=== PATIENT | female | born 1965 | race Caucasian/White ===

== ENCOUNTER → 2019-05-29 | Outpatient (CLI) | payer BC ==
[2019-05-29 15:11] LABS: INR 0.9 (<1.2); Prothrombin Time 10.1 sec (9.0-12.0)
[2019-05-29 15:27] LABS: Basophils # (A) 0.1 k/uL (0-0.2); Basophils % (A) 1 %; Eosinophils # (A) 0.2 k/uL (0-0.7); Eosinophils % (A) 3 %; HCT 43.5 % (34.0-46.0); HGB 14.4 gm/dL (11.4-16.0); Lymphocytes # (A) 1.9 k/uL (1.0-4.8); Lymphocytes % (A) 27 %; MCH 30.1 pg (25.0-35.0); MCV 91.3 fL (80.0-100.0); Mean Platelet Volume 7.4; Monocytes # (A) 0.3 k/uL (0-1.0); Monocytes % (A) 5 %; Neutrophils # (A) 4.4 k/uL (1.3-7.7); Neutrophils % (A) 63 %; Platelet Count 293 k/uL (150-450); RBC 4.77 m/uL (3.80-5.40); RDW 12.9 % (11.5-15.5)
[2019-05-29 18:55] LABS: African American GFR (CKD) 96.2 (60.0-200.0); Albumin 4.3 g/dL (3.80-4.90); Albumin/Globulin Ratio 1.87 (1.60-3.17); Anion Gap 8.5 mmol/L (4.00-12.00); BUN/Creat Ratio 28.75 Ratio (12.00-20.00); Calcium 9.5 mg/dL (8.7-10.3); Carbon Dioxide 28.5 mmol/L (21.6-31.8); Globulin 2.3 g/dL (1.6-3.3); Potassium 4.8 mmol/L (3.5-5.5); Total Bilirubin 0.3 mg/dL (0.3-1.2); Total Protein 6.6 g/dL (6.2-8.2)
== END | disposition home or self-care (01) ==
LOC: LABWHC1 14:38
PROVIDERS: ATTEND Nurse Practitioner Family
DX: Z01.812 Encounter for preprocedural laboratory examination (principal)
CPT/HCPCS: 36415; 80053; 85025; 85610

== ENCOUNTER → 2019-05-29 | Outpatient (CLI) | payer BC ==
--- NOTE | 2019-05-31 14:31 | ECHOF ---
Referral Reason:R01.1 cardiac murmur MEASUREMENTS -------- HEIGHT: 170.2 cm WEIGHT: 94.3 kg BP: 150/100 IVSd: 1.5 cm (0.6 - 1.1) LVIDd: 3.9 cm (3.9 - 5.3) LVPWd: 1.4 cm (0.6 - 1.1) IVSs: 1.9 cm LVIDs: 2.5 cm LVPWs: 1.5 cm LA Diam: 4.2 cm (2.7 - 3.8) RVIDd: 3.0 cm (< 3.3) LAESV Index (A-L): 24.51 ml/m Ao Diam: 3.1 cm (2.0 - 3.7) AV Cusp: 1.1 cm (1.5 - 2.6) EPSS: 0.4 cm MV E Steve: 0.96 m/s MV DecT: 210 ms MV A Steve: 1.15 m/s MV E/A Ratio: 0.83 AV maxP.12 mmHg AV meanP.90 mmHg RAP: 5.00 mmHg RVSP: 31.33 mmHg MV EF SLOPE: 51.38 mm/s (70 - 150) MV EXCURSION: 14.27 mm (> 18.000) FINDINGS -------- Sinus rhythm. This was a technically good study. The left ventricular size is normal. There is mild concentric left ventricular hypertrophy. Overa ll left ventricular systolic function is normal with, an EF between 60 - 65 %. The right ventricle is normal in size. Normal LA size by volume 22+/-6 ml/m2. The right atrium is normal in size. Interatrial and interventricular septum intact. There is moderate aortic valve sclerosis. There is mild aortic regurgitation. There is moderate a ortic stenosis present. Peak/mean gradient across the Aortic Valve is 41.12mmHg / 21.90mmHg. Mild mitral annular calcification present. Mild mitral regurgitation is present. Mild tricuspid regurgitation present. Right ventricular systolic pressure is normal at < 35 mmHg. Trace/mild (physiologic) pulmonic regurgitation. The aortic root size is normal. Normal inferior vena cava with normal inspiratory collapse consistent with estimated right atrial pre ssure of 5 mmHg. There is no pericardial effusion. CONCLUSIONS -------- 1. Sinus rhythm. 2. This was a technically good study. 3. The left ventricular size is normal. 4. There is mild concentric left ventricular hypertrophy. 5. Overall left ventricular systolic function is normal with, an EF between 60 - 65 %. 6. The right ventricle is normal in size. 7. Normal LA size by volume 22+/-6 ml/m2. 8. The right atrium is normal in size. 9. Interatrial and interventricular septum intact. 10. There is moderate aortic valve sclerosis. 11. There is mild aortic regurgitation. 12. There is moderate aortic stenosis present. 13. Peak/mean gradient across the Aortic Valve is 41.12mmHg / 21.90mmHg. 14. Mild mitral annular calcification present. 15. Mild mitral regurgitation is present. 16. Mild tricuspid regurgitation present. 17. Right ventricular systolic pressure is normal at < 35 mmHg. 18. Trace/mild (physiologic) pulmonic regurgitation. 19. The aortic root size is normal. 20. Normal inferior vena cava with normal inspiratory collapse consistent with estimated right atrial pressure of 5 mmHg. 21. There is no pericardial effusion. VAULT MANAGER: Betsy Ambrose RDCS
== END | disposition home or self-care (01) ==
LOC: RADECHMAIN 13:25
PROVIDERS: ATTEND Family Medicine
DX: I08.3 Combined rheumatic disorders of mitral, aortic and tricuspid valves (principal)
CPT/HCPCS: 93306

== ENCOUNTER 2019-06-12 10:56 | Day surgery (SDC) | payer BC ==
[2019-06-09 15:51] VITALS: BMI 32.1
[~2019-06-12 10:56] MED LIST: DEXAMETHASONE SOD PHOSPHATE 10 MG/ML 1 ML VIAL IV ONE; HYDROmorphone 0.5 MG/0.5 ML SYRINGE IVP PRN; LIDOCAINE 1% 20 ML VIAL (10MG/ML) FOR IV START INTRADERMA PRN; MIDAZOLAM 2 MG/2 ML VIAL IV PRN; ONDANSETRON 4 MG/2 ML VIAL IVP ONE; Pre Op ABX Message 1 EACH MISC MISCELLANE ONE; SCOPOLAMINE 1.5MG/72HR PATCH TRANSDERM ONE
[2019-06-12 11:21] VITALS: RESP 16; TEMP 98.4
[2019-06-12] MEDS: LACTATED RINGERS 1,000 ML IV SCH ×2 (11:23→15:11)
[2019-06-12] MEDS ORDERED: fentaNYL (PF) 50 MCG/ML 2 ML AMP IV ONE (12:01)
--- NOTE | 2019-06-12 12:13 | P.ANPRN ---
Procedure Note - Anesthesia - Nerve Block Performed Right Interscalene Single Time Out Performed: Yes Date of Procedure: 06/12/19 Procedure Start Time: 12:01 Procedure Stop Time: 12:09 Location of Patient Procedure: PreOp Indication: Acute Post-Operative Pain, Requested by Surgeon (Dr Black) Specifically requested for management of pain by : Kaushal Black Sedation Type: Sedate with meaningful contact maintained Preparation: Sterile Prep Position: Supine Catheter: None Needle Types: Facet Needle Gauge: 20 Ultrasound used to visualize needle placement: Yes Ultrasound used to observe medication spread: Yes Injectate: 0.5% Ropivacaine (see comment for volume) (30 mls) Blood Aspirated: No Pain Paresthesia on Injection Noted: No Resistance on Injection: Normal Image Stored and Saved: Yes Events: Uneventful and Well Tolerated
[2019-06-12] MEDS ORDERED: MIDAZOLAM 2 MG/2 ML VIAL ONE (12:20)
[2019-06-12] MEDS ORDERED: PHENYLEPHRINE-0.9% NACL SYG 1 MG/10 ML SYRINGE ONE (12:20)
[2019-06-12] MEDS ORDERED: ceFAZolin 1,000 MG VIAL ONE (12:20)
[2019-06-12] MEDS ORDERED: ROPIVACAINE 5 MG/ML 30 ML VIAL ONE (12:20)
[2019-06-12] MEDS ORDERED: LIDOCAINE 1% INJ 10MG/ML (20 ML MDV) ONE (12:20)
[2019-06-12] MEDS ORDERED: PROPOFOL 10 MG/ML 20 ML VIAL IV ONE (12:20)
[2019-06-12] MEDS ORDERED: fentaNYL (PF) 50 MCG/ML 2 ML AMP ONE (12:20)
[2019-06-12] MEDS ORDERED: SUCCINYLCHOLINE CHLORIDE 100 MG/5 ML SYR IV ONE (12:20)
[2019-06-12] MEDS ORDERED: SODIUM CHLORIDE 0.9% 50 ML with ceFAZolin 2,000 MG IV ONE ×2 (12:23)
[2019-06-12] MEDS ORDERED: EPINEPHrine 4 MG in SODIUM CHLORIDE 0.9% IRRIGATIO 3,000 ML IRRIGATION ONE ×8 (12:49)
--- NOTE | 2019-06-12 13:45 | P.OP ---
Date of Procedure: 06/12/19 Procedure(s) Performed: PREOPERATIVE DIAGNOSES: 1. Right shoulder rotator cuff tendinopathy. 2. Chronic impingement syndrome. 3. Acromioclavicular osteoarthritis. 4. Superior labral degenerative tear. POSTOPERATIVE DIAGNOSES: 1. Right shoulder rotator cuff tear (high-grade partial supraspinatus, 1.5 cm). 2. Chronic impingement syndrome. 3. Acromioclavicular osteoarthritis. 4. Labral degenerative tear. 5. Mild adhesive capsulitis PROCEDURES PERFORMED: 1. Right shoulder arthroscopy with rotator cuff repair 2. Arthroscopic partial distal clavicle excision 3. Arthroscopic lysis of adhesions and manipulation under anesthesia 4. Arthroscopic subacromial decompression 5. Arthroscopic debridement superior labral tear ANESTHESIA: General. ESTIMATED BLOOD LOSS: Less than 25 mL TOURNIQUET: None ENVIRONMENTAL JOURNALIST: Gayla Castanon PA-C (assistance with: Positioning, retraction, c amera operation, repair, closure, dressing) COMPLICATIONS: None. DISPOSITION: To postanesthesia care unit INDICATIONS: Hanna is a 54 year old female with a history of rotator cuff difficulties. MRI was suspicious for a tear, and the patient wishes to have it repaired. I have examined the patient in the office and proposed rotator cuff repair via an arthroscopic or mini-open approach, as well as other procedures to optimize the shoulder and outcome, such as decompression of spurs and debridement of loose or degenerated tissue. I have explained the risks of this surgery as being inclusive of, but not limited to: bleeding, infection, scarring, discomfort, blood vessel and/or nerve damage, need for further surgery, stiffness, persistence or worsening of problems, , and other ris ks. The consent form has been completed and signed. PROCEDURE: Appropriate consent was obtained from the patient. The patient was taken to the operating room and placed in the supine position. General anesthesia was initiated and after confirmation of adequate anesthesia, the patients right shoulder was examined. Initial range of motion showed flexion to 150 abduction to 150, external rotation to 60 and internal rotation to 30. Using Codman's paradox maneuver, the right shoulder was gently stretched and final range of motion after the stretch was for flexion to 180 , abduction to 180, external rotation to 75, and internal rotation to 75 with the arm at 90 abduction. The shoulder was stable. Next, the patient was rotated into the lateral decubitus position and stabilized to the table with a braden bag and padded straps. Care was taken to make sure that all pressure points were adequately padded. Bear-hugger was used along with bilateral leg sequential compression devices. Prepping and draping was completed in the usual aseptic fashion using ChloraPrep. The patient received intravenous antibiotics prior to incision. The shoulder was suspended from traction with 10 lbs. of weight in a position of 45 degrees abduction. Landmarks were outlined with a skin marking pen. A spinal needle was inserted into the glenohumeral joint and fluid was administered to distend the joint. A posterior portal was created using an 11 blade and the arthroscopic canula, over a dull trocar, was carefully inserted into the joint. Arthroscopy then commenced. An anterior portal was inserted in the rotator interval area using inside-out technique. Biceps tendon was normal. Infraspinatus, subscapularis, and teres minor attachments were normal. Hyaline cartilage of the glenoid and humeral head showed degenerative changes typical for age. Supraspinatus attachment showed an area of suspicion of high grade partial tearing with evidence of minor damage on the articular side but suspicion of more serious damage on the bursal side. No loose bodies were noted in the joint. Superior labrum showed some degenerative tearing but was well-attached. Negative peel back sign. There was also evidence of minor degenerative labral tearing in the inferior area. Loose fibers of labrum in this area were debrided away back to stable labrum. Synovitis was noted superior to the superior labrum and within the rotator interval. This was debrided and removed where the capsule appeared inflamed, using an arthroscopic shaver. Attention was then directed to the subacromial space. The camera and instruments were redirected into the subacromial space and bursoscopy was performed. The patients bursa was inflamed and thickened, indicating chronic bursitis. There also appear to be significant degenerative adhesions present within the lateral gutter anterior gutter and posterior gutter. These adhesions were lysed using a shaver and radiofrequency and attention was paid to met iculous hemostasis with the ArthroCare device. A lateral portal was created using outside-in technique. The supraspinatus tendon was examined particularly closely. There was an approximately 1.5 cm high-grade partial tear. This tear involved at least 75% of the tendon thickness. The loose fibers of the tear were debrided back to stable tissue and the defect in the tendon was repaired arthroscopically after careful preparation of the supraspinatus footprint with shantel and rasp to create a good bleeding surface of bone, see below. The undersurface of the acromion had frictional changes consistent with impingement syndrome. The underside of the acromion anteriorly was cleared of soft tissue using an arthroscopic radiofrequency ablator. Care was taken while using the ablator not to exceed 40 degrees Centigrade within the bursa. The frictional changes of the rotator cuff matched exactly the location of the rotator cuff tear in the critical zone. A formal subacromial decompression was performed using a shantel. Approximately 5.5 mm of material was removed from the anterior-inferior corner of the acromion. This resection was beveled upwards laterally, and carried to the AC joint. The AC joint appeared arthritic with inferior spurring. This spurring was removed with a shantel, co-planing the resection with the acromial resection and removing approximately 5 to 6 mm of inferior distal clavicle maximally. The rotator cuff tear was then repaired as follows. Preparation of the supraspinatus footprint was performed using hand rasps , shantel, and shaver. This created a bleeding surface without significant decortication. A reverse mattress suture using Fiber Tape from [employer] was deployed into the torn supraspinatus edge. A 4.75 mm Swivelock anchor was then deployed at the greater tuberosity and the suture tension was adjusted so that there was complete reduction and coverage of the footprint. Loose cuff material adjacent to the fiber tape was tacked down using the accessory stitch within the anchor. Suture tails were then cut. It was noted that there was complete closure of the cuff defect. The repair was stable. Subsequently, 4-0 Monocryl was used to close the portal holes. Steri-strips were applied as well as sterile dressing. The shoulder was then placed into a sling and the patient was transferred to recovery room in stable condition. Sponge and needle counts were correct.
[2019-06-12 15:41] VITALS: BP 113/71; PULSE 80
== END 2019-06-12 16:20 | disposition home or self-care (01) ==
LOC: OR 10:56
PROVIDERS: ATTEND Orthopaedic Surgery
DX: S46.011A Strain of muscle(s) and tendon(s) of the rotator cuff of right shoulder, initial encounter (principal); S43.431A Superior glenoid labrum lesion of right shoulder, initial encounter; X58.XXXA Exposure to other specified factors, initial encounter; M75.41 Impingement syndrome of right shoulder; M19.011 Primary osteoarthritis, right shoulder; M75.01 Adhesive capsulitis of right shoulder; M65.811 Other synovitis and tenosynovitis, right shoulder; M71.9 Bursopathy, unspecified; E78.5 Hyperlipidemia, unspecified; I35.8 Other nonrheumatic aortic valve disorders; F32.9 Major depressive disorder, single episode, unspecified; Z97.3 Presence of spectacles and contact lenses; Z79.890 Hormone replacement therapy; Z79.899 Other long term (current) drug therapy; Z98.51 Tubal ligation status; Z87.891 Personal history of nicotine dependence; Z83.3 Family history of diabetes mellitus; Z82.49 Family history of ischemic heart disease and other diseases of the circulatory system; R01.1 Cardiac murmur, unspecified; I10 Essential (primary) hypertension; Z79.1 Long term (current) use of non-steroidal anti-inflammatories (NSAID); Z79.82 Long term (current) use of aspirin
CPT/HCPCS: 64415; 29826; 29827; 29824; C1713 ×2; C1894; J0171; J2250; J1100; J2405; J0690; J2001; J3010; J2795; J2370; J0330; J2704

== ENCOUNTER → 2021-01-10 | Outpatient (CLI) | payer BC ==
--- NOTE | 2021-01-11 10:00 | ECHOF ---
Referral Reason:I35.0 nonrheumatic valve stenosis MEASUREMENTS -------- HEIGHT: 170.2 cm WEIGHT: 95.3 kg BP: RVIDd: 2.8 cm (< 3.3) IVSd: 1.4 cm (0.6 - 1.1) LVIDd: 3.3 cm (3.9 - 5.3) LVPWd: 1.6 cm (0.6 - 1.1) IVSs: 2.0 cm LVIDs: 2.3 cm LVPWs: 1.7 cm LAESV Index (A-L): 29.63 ml/m Ao Diam: 2.9 cm (2.0 - 3.7) AV Cusp: 1.1 cm (1.5 - 2.6) LA Diam: 3.1 cm (2.7 - 3.8) MV EXCURSION: 14.924 mm (> 18.000) MV EF SLOPE: 55 mm/s (70 - 150) EPSS: 0.8 cm MV E Steve: 0.86 m/s MV DecT: 252 ms MV A Steve: 1.15 m/s MV E/A Ratio: 0.75 AV maxP.98 mmHg AV meanP.40 mmHg AR PHT: 1218 ms RAP: 5.00 mmHg RVSP: 33.08 mmHg FINDINGS -------- This was a technically good study. The left ventricular size is normal. There is moderate concentric left ventricular hypertrophy. O verall left ventricular systolic function is normal with, an EF between 55 - 60 %. Normal LAP Grade 1 Diastolic Dysfunction. The right ventricle is normal in size. LA is midly dilated 29-33ml/m2. The right atrial size is normal. Interatrial and interventricular septum intact. Aortic valve is trileaflet and is severely thickened. There is mild aortic regurgitation. Moderat e aortic stenosis with peak/mean pressure gradient of 50.98mmHg / 26.40mmHg, the aortic valve area by continuity equation is 0.3cm. Peak/mean gradient across the Aortic Valve is 50.98mmHg / 26.40mmHg . The mitral valve is normal. The mitral valve leaflets are mildly thickened. Mild mitral annular c alcification present. Mild mitral regurgitation is present. The tricuspid valve appears structurally normal. Mild tricuspid regurgitation present. Right vent ricular systolic pressure is normal at < 35 mmHg. There is no pulmonic regurgitation present. The aortic root size is normal. Normal inferior vena cava with normal inspiratory collapse consistent with estimated right atrial pre ssure of 5 mmHg. There is no pericardial effusion. CONCLUSIONS -------- 1. The left ventricular size is normal. 2. There is moderate concentric left ventricular hypertrophy. 3. Overall left ventricular systolic function is normal with, an EF between 55 - 60 %. 4. Normal LAP Grade 1 Diastolic Dysfunction. 5. LA is midly dilated 29-33ml/m2. 6. Aortic valve is trileaflet and is severely thickened. 7. There is mild aortic regurgitation. 8. Peak/mean gradient across the Aortic Valve is 50.98mmHg / 26.40mmHg. 9. The mitral valve leaflets are mildly thickened. 10. Mild mitral annular calcification present. 11. Mild mitral regurgitation is present. 12. Mild tricuspid regurgitation present. 13. There is no pericardial effusion. IMAGER: Gayla Aragon RDCS
== END | disposition home or self-care (01) ==
LOC: RADECHMAIN 13:36
PROVIDERS: ATTEND Family Medicine
DX: I08.3 Combined rheumatic disorders of mitral, aortic and tricuspid valves (principal)
CPT/HCPCS: 93306

== ENCOUNTER → 2021-04-29 | Outpatient (CLI) | payer BC ==
[2021-04-29 12:18] LABS: HCT 43.7 % (34.0-46.0); HGB 14.6 gm/dL (11.4-16.0); MCH 28.3 pg (25.0-35.0); MCHC 33.4 g/dL (31.0-37.0); MCV 84.8 fL (80.0-100.0); Mean Platelet Volume 7.7; Platelet Count 327 k/uL (150-450); RBC 5.15 m/uL (3.80-5.40); RDW 13.6 % (11.5-15.5); WBC 5.9 k/uL (3.8-10.6)
[2021-04-29 12:27] LABS: African American GFR (CKD) >90 (>60 ml/min/1.73 sqM); Anion Gap 5 mmol/L; Blood Urea Nitrogen 21 mg/dL (7-17); Carbon Dioxide 32 mmol/L (22-30); Chloride 104 mmol/L (98-107); Non-African American GFR(CKD) >90 (>60 ml/min/1.73 sqM); Potassium 4.8 mmol/L (3.5-5.1); Sodium 141 mmol/L (137-145)
== END | disposition home or self-care (01) ==
LOC: LABWHC1 11:58
PROVIDERS: ATTEND Internal Medicine
DX: Z01.812 Encounter for preprocedural laboratory examination (principal); I35.0 Nonrheumatic aortic (valve) stenosis
CPT/HCPCS: 36415; 80051; 82565; 84520; 85027

== ENCOUNTER 2021-05-02 10:42 | Day surgery (SDC) | payer BC ==
[2021-04-28 15:47] VITALS: BMI 32.8
[~2021-05-02 10:42] MED LIST changes: +ALPRAZolam 0.25 MG TAB PO PRN; +ALPRAZolam 0.5 MG TAB PO PRN; +ASPIRIN 325 MG TAB PO ONE; -DEXAMETHASONE SOD PHOSPHATE 10 MG/ML 1 ML VIAL IV ONE; +HEPARIN SODIUM,PORCINE 10,000 UNIT in SODIUM CHLORIDE 0.9% 1,000 ML IRRIGATION PRN; +HEPARIN SODIUM,PORCINE 2,500 UNIT in SODIUM CHLORIDE 0.9% 250 ML IRRIGATION PRN; -HYDROmorphone 0.5 MG/0.5 ML SYRINGE IVP PRN; -LIDOCAINE 1% 20 ML VIAL (10MG/ML) FOR IV START INTRADERMA PRN; -MIDAZOLAM 2 MG/2 ML VIAL IV PRN; +NITROGLYCERIN SL TABS 0.4 MG TAB SUBLINGUAL PRN; -ONDANSETRON 4 MG/2 ML VIAL IVP ONE; -Pre Op ABX Message 1 EACH MISC MISCELLANE ONE; -SCOPOLAMINE 1.5MG/72HR PATCH TRANSDERM ONE; +SODIUM CHLORIDE 0.9% 1,000 ML in EMPTY BAG 1 BAG IV ONE
[2021-05-02 11:05] VITALS: TEMP 98.4
[2021-05-02] MEDS ORDERED: fentaNYL (PF) 50 MCG/ML 2 ML AMP ONE (11:58)
[2021-05-02] MEDS ORDERED: BENZOCAINE SPRAY 1 CAN TOPICAL ONE (12:05)
[2021-05-02] MEDS ORDERED: MIDAZOLAM 2 MG/2 ML VIAL IV ONE ×3 (12:05→12:49)
[2021-05-02] MEDS: fentaNYL (PF) 50 MCG/ML 2 ML AMP IV ONE ×3 (12:08→12:47)
[2021-05-02] MEDS ORDERED: VERAPAMIL 2.5 MG/ML 2 ML AMP ONE (12:20)
[2021-05-02] MEDS ORDERED: LIDOCAINE 1% INJ 10MG/ML (20 ML MDV) ONE (12:20)
[2021-05-02] MEDS ORDERED: SODIUM CHLORIDE 0.9% 1,000 ML IV ONE (12:26)
[2021-05-02] MEDS ORDERED: IV FLUID CONTINUATION 1,000 ML IV ONE ×2 (12:35)
[2021-05-02] MEDS ORDERED: LIDOCAINE 1% INJ 10MG/ML (20 ML MDV) SQ ONE (12:51)
[2021-05-02] MEDS ORDERED: HEPARIN SODIUM 1,000 UN/ML (10ML VL) ONE (12:55)
[2021-05-02] MEDS ORDERED: IOPAMIDOL-370 125ML BTL INJ ONE (13:09)
[2021-05-02 16:11] VITALS: RESP 12
[2021-05-02 17:33] VITALS: BP 126/83; PULSE 81
--- NOTE | 2021-05-02 18:25 | P.TEE ---
Description of Procedure(s): Procedure performed: Transesophageal Echocardiogram with color flow doppler, pulsed wave doppler and continuous wave doppler, moderate conscious sedation Moderate conscious sedation: Moderate conscious sedation was supplied with direct supervision of myself using Versed and Fentanyl. Complications: none Indications: Aortic stenosis History: Patient is a pleasant 56 year old male with history of aortic stenosis. There has been progression of disease with at least moderate aortic stenosis. She follows with Dr Flores who recommended CHARLEE and left heart cath. PROCEDURE: After the risks, benefits and alternatives of the above mentioned procedure was explained in detail with the patient, informed consent was obtained. Patient was brought to the lab in a fasting state. Patient was given IV Versed and Fentanyl for sedation. The throat was sprayed with Hurricane to anesthetize the throat. A lubricated Omni probe was then introduced into the esophagus and stomach and multiple views were obtained. 2D echo with color flow doppler, pulsed wave doppler and continuous wave doppler was utilized. Agitated saline bubbles were injected to assess for any intra-atrial shunt. The probe was then removed. Patient tolerated the procedure well. Patient was transferred to the post procedure area in stable and satisfactory condition. FINDINGS: 1. The aortic valve is tricuspid with moderate calcification and decreased cusp excursion. There is moderate aortic stenosis with planimetry AYAAN 1.3cm2. 2. The mitral valve appears be normal with trace mitral regurgitation. 3. Tricuspid valve appears to be normal. 4. The interatrial septum is intact. No evidence of PFO. 5. Left atrial appendage is free of clot. 6. Left ventricular size and function appear to be normal with EF 60%
--- NOTE | 2021-05-02 18:34 | P.CARDCATH ---
Description of Procedure: PROCEDURES PERFORMED: Left heart catheterization, bilateral coronary angiography INDICATION: Aortic stenosis HISTORY: Patient is a pleasant 56 year old female with history of aortic stenosis with at least moderate aortic stenosis. Patient follows with Dr Flores and CHARLEE and left heart catheterization were recommended. CONSENT:I have discussed the risks, benefits and alternative therapies for the above-mentioned procedure and for both sedation/analgesia as well as necessary blood product administration, if indicated, as they pertain to this patient. The patient has indicated understanding and acceptance of the risks and procedures discussed. PROCEDURE: After the risks, benefits and alternatives of the above mentioned pro cedure explained in detail with the patient, informed consent was obtained. Patient was taken to the catheterization lab and prepped and draped in usual fashion. 1% lidocaine was used to anesthetize the right radial artery. A 6- Macanese sheath was placed in the right radial artery using modified Seldinger technique. Left coronary angiography was performed with a 5-Macanese JL 3.5 catheter and right coronary angiography was performed with a 5-Macanese JR5 catheter in various views. A 5-Macanese FR5 catheter was inserted into the left ventricle and pressure measurements were obtained. The right radial sheath was removed and a TR band was placed with hemostasis achieved. The patient tolerated the procedure well. Patient was transported back to the post catheterization holding area in stable condition. Conscious Sedation: Patient was monitored under the direct supervision of vision of myself for conscious sedation using Versed and fentanyl for a total duration of 19 minutes HEMODYNAMICS: Ao: 160/88 LV: 178/7, LVEDP 22 Aortic gradient with pullback: peak to peak 24, mean gradient 20 SELECTIVE CORONARY ARTERIOGRAPHY: LEFT MAIN: The left main is a large caliber vessel which bifurcates into the LAD and circumflex. There is no significant stenosis. LEFT ANTERIOR DESCENDING CORONARY ARTERY: LAD is a large caliber vessel which wraps around to the apex. There is a 20% ostial LAD stenosis. LEFT CIRCUMFLEX CORONARY ARTERY: Left circumflex is a moderate caliber vessel without significant stenosis. RIGHT CORONARY ARTERY: The right coronary artery is a large caliber vessel which gives off a PDA and PLV branch and is the dominant vessel. There is no significant stenosis. FINAL IMPRESSION: 1. Relatively normal coronary arteries as described above with only ostial LAD 20% stenosis. 2. Mildly elevated left sided filling pressures 3. Moderate aortic stenosis with mean gradient 20mmHg with pullback PLAN: 1. Aggressive risk factor modification per most recent ACC/AHA guidelines. 2. Follow-up in the office in 1-2 weeks.
== END 2021-05-02 17:30 | disposition home or self-care (01) ==
LOC: CATHCVL 10:42
PROVIDERS: ATTEND Internal Medicine
DX: I35.0 Nonrheumatic aortic (valve) stenosis (principal); I25.10 Atherosclerotic heart disease of native coronary artery without angina pectoris; I10 Essential (primary) hypertension; E78.5 Hyperlipidemia, unspecified; Z82.49 Family history of ischemic heart disease and other diseases of the circulatory system; F17.210 Nicotine dependence, cigarettes, uncomplicated; Z88.5 Allergy status to narcotic agent; Z79.899 Other long term (current) drug therapy
CPT/HCPCS: 93312; 93320; 93325; 93458; C1894; C1769; J2250; J2001; J3010; J1644; Q9967

== ENCOUNTER 2021-05-06 13:26 | Emergency (ER) | payer BC ==
[2021-05-06 13:39] VITALS: RESP 20; TEMP 98.6
[2021-05-06] MEDS ORDERED: PROPARACAINE 0.5% OPHTH DROPS 15 ML BTL BOTH EYES STA (13:55)
[2021-05-06] MEDS ORDERED: FLUORESCEIN STRIPS 1 MG STRIP BOTH EYES ONE (13:55)
--- NOTE | 2021-05-06 14:03 | ED ---
General Adult HPI - General Chief complaint: Eye Problems Stated complaint: vision changes post heart cath Time Seen by Provider: 05/06/21 13:54 Source: patient Mode of arrival: ambulatory Limitations: no limitations - History of Present Illness Initial comments: Dictation was produced using [employer] dictation software. please excuse any grammatical, word or spelling errors. Chief Complaint: 56-year-old female presents to the emergency department for right eye vision changes History of Present Illness: 56-year-old female she received a cardiac cath for 5 days ago. She was at a benign cath. She has aortic disease. Since Saturday patient is began having patient changes to her right eye. She states she noted some flashes and spiderweb appearing things in her right visual angel. Today she noticed that her vision was reminiscent of mud splatters. She denies any eye pain. Denies any history of ophthalmologic surgery. The ROS documented in this emergency department record has been reviewed and confirmed by me. Those systems with pertinent positive or negative responses have been documented in the HPI. All other systems are other negative and/or noncontributory. PHYSICAL EXAM: General Impression: Alert and oriented x3, not in acute distress HEENT: Normocephalic atraumatic, extra-ocular movements intact, pupils equal and reactive to light bilaterally, mucous membranes moist. Cardiovascular: Heart regular rate and rhythm Chest: Able to complete full sentences, no retractions, no tachypnea Abdomen: abdomen soft, non-tender, non-distended, no organomegaly Musculoskeletal: Pulses present and equal in all extremities, no peripheral edema Motor: no focal deficits noted Neurological: CN II-XII grossly intact, no focal motor or sensory deficits noted Skin: Intact with no visualized rashes Psych: Normal affect and mood Endoscopy: Appears to be vitreous hemorrhage ED course: 56-year-old female presents with painless right eye vision changes. All signs upon arrival are within acceptable limits. Patient's well-appearing at bedside otherwise. Patient was seen at bedside by production line mechanic Dr. Mcnair. He had her pupils dilated and diagnosed patient with Macula on retinal detachment. His recommendations transfer to [facility] for emergent ophthalmology evaluation. Case is discussed with Dr. Mancini was willing to accept patients care for ER to ER transfer. Dr. Mcnair reports that he called ahead and discussed patient case with [facility] ophthalmology residents to expect patient. - Related Data Home Medications Medication Instructions Recorded Confirmed ALPRAZolam [Xanax] 0.5 mg PO DAILY PRN 06/09/19 04/28/21 Fish Oil/Dha/Epa [Fish Oil 1,200 1,200 mg PO DAILY 06/09/19 05/02/21 mg Fish Oil] Ibuprofen [Motrin] 800 mg PO TID PRN 06/09/19 04/28/21 Levothyroxine Sodium 25 mcg PO DAILY 06/09/19 05/02/21 Multivit/Folic Acid/Vit K1 1 tab PO DAILY 06/09/19 05/02/21 [One-A-Day Women's 50 Plus Tab] Sertraline [Zoloft] 150 mg PO DAILY 06/09/19 05/02/21 Ascorbic Acid [Vitamin C with Tori 1,000 mg PO DAILY 04/28/21 05/02/21 Hips] Atorvastatin [Lipitor] 20 mg PO DAILY 04/28/21 05/02/21 Cholecalciferol (Vitamin D3) 250 mcg PO DAILY 04/28/21 05/02/21 [Vitamin D3 (5000 Iu)] Loratadine [Claritin] 10 mg PO DAILY 04/28/21 05/02/21 Omeprazole [PriLOSEC] 20 mg PO AC-BRKFST 04/28/21 05/02/21 Turmeric Root Extract [Turmeric] 1,500 mg PO DAILY 04/28/21 05/02/21 Allergies Allergy/AdvReac Type Severity Reaction Status Date / Time No Known Allergies Allergy Verified 05/06/21 13:36 Review of Systems ROS Statement: Those systems with pertinent positive or pertinent negative responses have been documented in the HPI. ROS Other: All systems not noted in ROS Statement are negative. Past Medical History Past Medical History: Hyperlipidemia, Hypertension, Osteoarthritis (OA), Sleep Apnea/CPAP/BIPAP, Thyroid Disorder Additional Past Medical History / Comment(s): past hypertension-stress related, heart murmer, 'thickened heart valve", no cpap used, History of Any Multi-Drug Resistant Organisms: None Reported Past Surgical History: Heart Catheterization, Joint Replacement, Orthopedic Surgery, Tubal Ligation Additional Past Surgical History / Comment(s): TRACHEOSTOMY -NONE NOW, rt knee replacement, rt shoulder surgery, Past Anesthesia/Blood Transfusion Reactions: Previous Problems w/ Anesthesia, Family History of Problems w/ Anesthesia Additional Past Anesthesia/Blood Transfusion Reaction / Comment(s): SLOW TO WAKE UP AFTER ANESTHESIA, father "was not himsefl" after anesthesia Past Psychological History: Anxiety, Depression Smoking Status: Former smoker Past Alcohol Use History: Rare Past Drug Use History: None Reported - Past Family History Mother Family Medical History: No Reported History General Exam Limitations: no limitations Course Vital Signs 05/06/21 05/06/21 13:36 16:26 Temperature 98.6 F Pulse Rate 102 H 84 Respiratory 20 20 Rate Blood Pressure 122/73 154/99 O2 Sat by Pulse 97 96 Oximetry Disposition Clinical Impression: Retinal detachment Disposition: OTHER INSTITUTION NOT DEFINED Condition: Critical Referrals: Quique Comer MD [Primary Care Provider] - 1-2 days - Out of Hospital Transfer - Req. Specs Out of Hospital Transfer - Requested Specifics: Other Emergency Center ([facility]
[2021-05-06] MEDS ORDERED: TROPICAMIDE 1% OPHTH DROPS 2 ML BTL BOTH EYES STA (14:47)
--- NOTE | 2021-05-06 16:01 | P.CON ---
Consult Note - . Consult date: 05/06/21 Assessment/Plan:: 56 y/o female who underwent cardiac catheterization about 4 days ago. The day following she began to experience bruising of the right eye, and the day after had a single photopsia. Since then another day later she began to experience s ymptoms of new bebris in her vision. She denies any trauma in the last 90 days. She was given heparin and was on low-dose aspirin at the time. Her past eye examination was several years ago, and cannot state as to whether she has undergone a dilated examination. There is no known eye problems or previous surgery and is on no medications for the eyes. PE: VA w/ correction 20/20 OU CF: full without constriction OU Pupil: no APD Anterior: unremarkable dilated with 1% tropicamide Posterior: normal OS, OD with 2+ cells and blood strands in mid vitreous optic nerve: S/F/P mac: normal FLR vascular: normal peripheral: OD with 2 apparent holes and fluid within retina ~ 9 o/c; blood inferior in multiple areas. A: operculated holes x 2 ?? fluid within retina and macula is on P: recommend referral to [facility] for assessment and treatment as needed, CYNTHIA as macula is on and acuity is good.
[2021-05-06 16:27] VITALS: BP 154/99; PULSE 84
[2021-05-06] MEDS ORDERED: SODIUM CHLORIDE 0.9% 1,000 ML IV SCH (16:30)
== END 2021-05-06 16:45 | disposition other institution (70) ==
LOC: EC 13:26
DX: H33.21 Serous retinal detachment, right eye (principal); M19.90 Unspecified osteoarthritis, unspecified site; E78.5 Hyperlipidemia, unspecified; E07.9 Disorder of thyroid, unspecified; I10 Essential (primary) hypertension; Z79.890 Hormone replacement therapy; Z79.899 Other long term (current) drug therapy; Z87.891 Personal history of nicotine dependence
CPT/HCPCS: 99285

== ENCOUNTER → 2021-07-15 | Outpatient (CLI) | payer BC ==
[2021-07-15 22:04] LABS: African American GFR (CKD) 127.4 (60.0-200.0); Albumin 4.5 g/dL (3.8-4.9); Albumin/Globulin Ratio 1.65 (1.60-3.17); BUN/Creat Ratio 36.48 Ratio (12.00-20.00); Calcium 9.6 mg/dL (8.7-10.3); Carbon Dioxide 21.8 mmol/L (21.6-31.8); Chol/HDL Ratio 3.03 Ratio; Globulin 2.7 g/dL (1.6-3.3); HDL Cholesterol 69.7 mg/dL (40.00-60.00); LDL Cholesterol,Calculated 118.3 mg/dL (0.0-131.0); Potassium 4.8 mmol/L (3.5-5.5); Total Bilirubin 0.3 mg/dL (0.30-1.20); Total Protein 7.2 g/dL (6.2-8.2)
== END | disposition home or self-care (01) ==
LOC: LABWHC1 10:55
PROVIDERS: ATTEND Internal Medicine Clinical Cardiac Electrophysiology
DX: I25.10 Atherosclerotic heart disease of native coronary artery without angina pectoris (principal)
CPT/HCPCS: 36415; 80053; 80061

== ENCOUNTER → 2024-02-17 | Outpatient (CLI) | payer BC ==
--- NOTE | 2024-02-18 12:43 | CA ---
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 67 - 155 / 56 - 104 cm??? LV Systolic Volume MOD BP 52.4 cm??? 22 - 58 / 19 - 49 cm??? LV Ejection Fraction MOD BP 56.3 % >= 55 % LV Cardiac Index MOD BP 2301.0 cm???/min???m??? LV Diastolic Volume MOD 4C 115.2 cm??? LV Systolic Volume MOD 4C 53.3 cm??? LV Ejection Fraction MOD 4C 53.7 % LV Cardiac Index MOD 4C 2109.4 cm???/min???m??? LV Diastolic Length 4C 8.3 cm LV Systolic Length 4C 6.4 cm LV Diastolic Volume MOD 2C 124.7 cm??? LV Systolic Volume MOD 2C 49.7 cm??? LV Ejection Fraction MOD 2C 60.2 % LV Cardiac Index MOD 2C 2556.0 cm???/min???m??? LV Diastolic Length 2C 8.3 cm LV Systolic Length 2C 6.8 cm Ascending Aorta Diameter 3.4 cm DOPPLER AV Peak Velocity 460.9 cm/s AV Peak Gradient 85.0 mmHg AV Mean Velocity 337.7 cm/s AV Mean Gradient 52.1 mmHg AV Velocity Time Integral 97.3 cm LVOT Peak Velocity 149.9 cm/s LVOT Peak Gradient 9.0 mmHg LVOT Velocity Time Integral 29.8 cm LVOT Stroke Volume 97.3 cm??? LVOT Stroke Volume Index 44.9 ml/m??? LVOT Cardiac Index 3313.9 cm???/min???m??? AV Area Cont Eq vti 1.0 cm??? AV Area Cont Eq pk 1.1 cm??? Mitral E Point Velocity 93.9 cm/s Mitral A Point Velocity 135.4 cm/s Mitral E to A Ratio 0.7 MV Deceleration Time 258.8 ms MV E' Velocity 3.4 cm/s Mitral E to MV E' Ratio 27.2 TR Peak Velocity 241.4 cm/s TR Peak Gradient 23.3 mmHg Right Atrial Pressure 10.0 mmHg Pulmonary Artery Systolic Pressu 33.3 mmHg Right Ventricular Systolic Press 33.3 mmHg PV Peak Velocity 91.0 cm/s PV Peak Gradient 3.3 mmHg FINDINGS Left Ventricle Left ventricular ejection fraction is estimated at 55 %. Moderately increased septal wall thickness. Mildly increased posterior wall thickness. Moderately increased left ventricular diastolic volume. Mildly increased left ventricular systolic volume. No obvious regional wall motion abnormalities. Right Ventricle Mild right ventricular dilatation with normal function. Right ventricular systolic pressure within normal limits. Right Atrium Normal right atrial size. Left Atrium Severe left atrial dilatation. Mitral Valve Mitral valve thickened. Mild mitral annular calcification. No evidence for mitral valve prolapse. No mitral stenosis. [id number] mitral regurgitation. Aortic Valve Diffuse thickening of the aortic valve cusps with reduced excursion. Severe aortic stenosis with a peak velocity of 5.1 m/s, peak gradient 102 mmHg, mean gradient 63 mmHg, and estimated aortic valve area of 0.9 cm???. Mild aortic regurgitation. Tricuspid Valve Structurally normal tricuspid valve. No tricuspid stenosis. Mild tricuspid regurgitation. Pulmonic Valve Structurally normal pulmonic valve. No pulmonic stenosis. Trace pulmonic regurgitation. Pericardium No pericardial effusion. Aorta Normal size aortic root and proximal ascending aorta. CONCLUSIONS Normal LV systolic function. Concentric left ventricular hypertrophy Aortic sclerosis with severe aortic stenosis and mean gradient of 63 mmHg [id number] mitral regurgitation Previewed by: Dr. Mirza Barron MD (Electronically Signed) Final Date: 18 Feb 2024 12:43
== END | disposition home or self-care (01) ==
LOC: RADECHMAIN 12:39
PROVIDERS: ATTEND Family Medicine
DX: I35.8 Other nonrheumatic aortic valve disorders (principal); I35.0 Nonrheumatic aortic (valve) stenosis; I34.0 Nonrheumatic mitral (valve) insufficiency; I51.7 Cardiomegaly
CPT/HCPCS: 93306

== ENCOUNTER 2024-05-28 12:52 | Day surgery (SDC) | payer BC ==
[~2024-05-28 12:52] MED LIST changes: -ALPRAZolam 0.25 MG TAB PO PRN; -ALPRAZolam 0.5 MG TAB PO PRN; -ASPIRIN 325 MG TAB PO ONE; -HEPARIN SODIUM,PORCINE 10,000 UNIT in SODIUM CHLORIDE 0.9% 1,000 ML IRRIGATION PRN; -HEPARIN SODIUM,PORCINE 2,500 UNIT in SODIUM CHLORIDE 0.9% 250 ML IRRIGATION PRN; +MIDAZOLAM 2 MG/2 ML VIAL ONE; -NITROGLYCERIN SL TABS 0.4 MG TAB SUBLINGUAL PRN; -SODIUM CHLORIDE 0.9% 1,000 ML in EMPTY BAG 1 BAG IV ONE; +fentaNYL (PF) 50 MCG/ML 2 ML AMP ONE
== END 2024-05-28 14:29 | disposition home or self-care (01) ==
LOC: CATHCVL 12:52
PROVIDERS: ATTEND Internal Medicine
DX: I25.10 Atherosclerotic heart disease of native coronary artery without angina pectoris
CPT/HCPCS: 93312; 93320; 93325

== ENCOUNTER 2024-08-05 06:50 | Day surgery (SDC) | payer BC ==
[2024-08-03 16:02] VITALS: BMI 36.0
[~2024-08-05 06:50] MED LIST changes: +ALPRAZolam 0.25 MG TAB PO PRN; +ALPRAZolam 0.5 MG TAB PO PRN; +HEPARIN SODIUM,PORCINE (1 ML) 2,500 UNIT in SODIUM CHLORIDE 0.9% 250 ML IRRIGATION PRN; +HEPARIN SODIUM,PORCINE 10,000 UNIT in SODIUM CHLORIDE 0.9% 1,000 ML IRRIGATION PRN; -MIDAZOLAM 2 MG/2 ML VIAL ONE; +NITROGLYCERIN SL TABS 0.4 MG TAB SUBLINGUAL PRN; -fentaNYL (PF) 50 MCG/ML 2 ML AMP ONE
[2024-08-05] MEDS ORDERED: ATORVASTATIN 80 MG TAB PO ONE (07:00)
[2024-08-05] MEDS: ASPIRIN 325 MG TAB PO ONE (07:29)
[2024-08-05] MEDS: SODIUM CHLORIDE 0.9% 1,000 ML in EMPTY BAG 1 BAG IV SCH (07:32)
[2024-08-05 07:34] VITALS: TEMP 98.3
[2024-08-05] MEDS: IV FLUID CONTINUATION 1,000 ML IV ONE (09:17)
[2024-08-05] MEDS: LIDOCAINE 1% INJ 10MG/ML (20 ML MDV) SQ ONE (09:33)
[2024-08-05] MEDS: fentaNYL (PF) 50 MCG/ML 2 ML AMP IVP ONE (09:33)
[2024-08-05] MEDS: VERAPAMIL SYRINGE (5 MG/10 ML) INTRAARTER ONE (09:33)
[2024-08-05] MEDS: MIDAZOLAM 2 MG/2 ML VIAL IVP ONE (09:33)
[2024-08-05] MEDS: HEPARIN SODIUM,PORCINE 10,000 UNIT in SODIUM CHLORIDE 0.9% 1,000 ML IRRIGATION ONE (09:34)
[2024-08-05] MEDS: HEPARIN SODIUM 1,000 UN/ML (10ML VL) IVP ONE (09:36)
[2024-08-05] MEDS: HEPARIN SODIUM,PORCINE (1 ML) 2,500 UNIT in SODIUM CHLORIDE 0.9% 250 ML IRRIGATION ONE (09:36)
[2024-08-05] MEDS: IOPAMIDOL-370 100ML BTL INJ ONE (09:45)
--- NOTE | 2024-08-05 10:26 | P.CARDCATH ---
Description of Procedure: PROCEDURES PERFORMED: Bilateral coronary angiography, ultrasound guided arterial access INDICATION: Severe aortic stenosis CONSENT:I have discussed the risks, benefits and alternative therapies for the above-mentioned procedure and for both sedation/analgesia as well as necessary blood product administration, if indicated, as they pertain to this patient. The patient has indicated understanding and acceptance of the risks and procedures discussed. PROCEDURE: After the risks, benefits and alternatives of the above mentioned pr ocedure explained in detail with the patient, informed consent was obtained. Patient was taken to the catheterization lab and prepped and draped in usual fashion. Ultrasound guidance was used to assess for arterial access. 1% lidocaine was used to anesthetize the right radial artery. A 6-[place] sheath was placed in the right radial artery using modified Seldinger technique and ultrasound guidance. Left coronary angiography was performed with a 5-[place] JL 3.5 catheter and right coronary angiography was performed with a 5-[place] AR2 catheter in various views. The right radial sheath was removed and a TR band was placed with hemostasis achieved. The patient tolerated the procedure well. Patient was transported back to the post catheterization holding area in stable condition. Conscious Sedation: Patient was monitored under the direct supervision of myself for conscious sedation using Versed and fentanyl for a total duration of 13 minutes HEMODYNAMICS: Ao: 132/71 SELECTIVE CORONARY ARTERIOGRAPHY: LEFT MAIN: The left main is a large caliber vessel which bifurcates into the LAD and circumflex. There is no significant stenosis. LEFT ANTERIOR DESCENDING CORONARY ARTERY: LAD is a large caliber vessel which wraps around to the apex. There are mild luminal irregularities of the LAD with 10% proximal LAD stenosis and a 10-20% diagonal 1 stenosis. LEFT CIRCUMFLEX CORONARY ARTERY: Left circumflex is a moderate caliber vessel without significant stenosis. RIGHT CORONARY ARTERY: The right coronary artery is a large caliber vessel which gives off a PDA and PLV branch and is the dominant vessel. There is no significant stenosis. FINAL IMPRESSION: 1. Relatively normal coronary arteries as described above with 10% proximal LAD stenosis and 10-20% diagonal 1 stenosis. PLAN: 1. Aggressive risk factor modification per most recent ACC/AHA guidelines. 2. Evaluate for aortic valve replacement.
[2024-08-05 11:05] VITALS: RESP 16
[2024-08-05 12:50] VITALS: BP 118/64; PULSE 81
[2024-08-05 13:15] LABS: Basophils % (A) 0 %; Eosinophils # (A) 0.2 k/uL (0-0.7); Eosinophils % (A) 3 %; HCT 45.1 % (34.0-46.0); HGB 14.8 gm/dL (11.4-16.0); Lymphocytes # (A) 1.6 k/uL (1.0-4.8); Lymphocytes % (A) 33 %; MCH 28.6 pg (25.0-35.0); MCHC 32.8 g/dL (31.0-37.0); MCV 87.2 fL (80.0-100.0); Mean Platelet Volume 10.4; Monocytes # (A) 0.3 k/uL (0-1.0); Monocytes % (A) 6 %; Neutrophils # (A) 2.7 k/uL (1.3-7.7); Neutrophils % (A) 55 %; Platelet Count 250 k/uL (150-450); RBC 5.18 m/uL (3.80-5.40); RDW 13.6 % (11.5-15.5); WBC 4.9 k/uL (3.8-10.6)
[2024-08-05 13:45] LABS: African American GFR (CKD) >90 (>60 ml/min/1.73 sqM); Anion Gap 7 mmol/L; Blood Urea Nitrogen 25 mg/dL (7-17); Calcium 9.4 mg/dL (8.4-10.2); Carbon Dioxide 24 mmol/L (22-30); Chloride 109 mmol/L (98-107); Glucose 85 mg/dL (74-99); Non-African American GFR(CKD) >90 (>60 ml/min/1.73 sqM); Potassium 4.5 mmol/L (3.5-5.1); Sodium 140 mmol/L (137-145)
== END 2024-08-05 13:59 | disposition home or self-care (01) ==
LOC: CATHCVL 06:50
PROVIDERS: ATTEND Internal Medicine
DX: I25.10 Atherosclerotic heart disease of native coronary artery without angina pectoris (principal); I35.0 Nonrheumatic aortic (valve) stenosis; I10 Essential (primary) hypertension; E78.5 Hyperlipidemia, unspecified; F17.210 Nicotine dependence, cigarettes, uncomplicated; Z88.6 Allergy status to analgesic agent; Z88.5 Allergy status to narcotic agent; Z79.899 Other long term (current) drug therapy
CPT/HCPCS: 93454; 80048; 85025; 99152; C1769; C1894; J2250; J1644 ×3; J2003; J3010; Q9967